=== PATIENT | female | born 1995 | race Caucasian/White ===

== ENCOUNTER → 2021-08-07 | Outpatient (CLI) | payer BC | END | disposition home or self-care (01) | LOC: LAB 17:06 → LAB SHORT 17:06 | PROVIDERS: Family Medicine | DX: Z01.419 Encounter for gynecological examination (general) (routine) without abnormal findings (principal) | CPT/HCPCS: G0123 ==

== ENCOUNTER 2023-03-06 06:06 | Emergency (ER) | payer OTHER, BC ==
[~2023-03-06] VITALS: Ht 172.7 cm; Wt 115.2 kg
[2023-03-06 06:19] VITALS: BP 136/101
[2023-03-06] MEDS ORDERED: Adipex-P37.5 M1 PO (06:30)
[2023-03-06] MEDS ORDERED: TRAZODONE HYDROCHLOR (06:31)
[2023-03-06] MEDS ORDERED: TOPI15C (06:31)
[2023-03-06] MEDS ORDERED: ESCITALOPRAM OXA5 MG (06:31)
[2023-03-07 13:09] LABS: HIV AB/P24 AG SCREEN Non Reactive (Non Reactive)
[2023-03-07 14:09] LABS: HCV ANTIBODY Non Reactive (Non Reactive)
== END 2023-03-06 07:23 | disposition home or self-care (01) ==
LOC: ER 06:06
PROVIDERS: Student in an Organized Health Care Education/Training Program
DX: Z77.21 Contact with and (suspected) exposure to potentially hazardous body fluids (principal); Z79.899 Other long term (current) drug therapy
CPT/HCPCS: 36415; 84460; 86317; 86703; 86803; 87340; 87389; 99283

== ENCOUNTER 2024-07-02 11:41 | Emergency (ER) | payer OTHER, BC ==
[~2024-07-02] VITALS: Ht 172.7 cm; Wt 111.1 kg
[~2024-07-02 11:41] MED LIST: Adipex-P37.5 M1 PO; ESCITALOPRAM OXA5 MG; TOPI15C; TRAZODONE HYDROCHLOR
[2024-07-02 12:04] VITALS: BP 152/100
[2024-07-02] MEDS ORDERED: RALT400 PO (13:16)
[2024-07-02] MEDS ORDERED: EMTRICITABINE-1 EACH PO (13:16)
[2024-07-04 14:50] LABS: HEPATITIS B SURFACE ANTIBODY 371.75 IU/L
[2024-07-04 16:03] LABS: HIV 1,2 COMBO ANTIGEN/ANTIBODY Negative (Negative)
[2024-07-07 15:08] LABS: HCV QNT BY NAAT (IU/ML) Not Detected; HCV QNT BY NAAT (LOG IU/ML) Not Detected; HCV QNT BY NAAT INTERP Not Detected (Not Detected)
== END 2024-07-02 13:21 | disposition home or self-care (01) ==
LOC: ER 11:41
PROVIDERS: Student in an Organized Health Care Education/Training Program
DX: Z77.21 Contact with and (suspected) exposure to potentially hazardous body fluids (principal); Z79.899 Other long term (current) drug therapy
CPT/HCPCS: 84460; 87389; 87522; 99283

== ENCOUNTER → 2024-08-11 | Outpatient (CLI) | payer BC ==
[~2024-08-11] MED LIST changes: +EMTRICITABINE-1 EACH PO; +RALT400 PO
[2024-08-13 11:21] LABS: HEPATITIS A ANTIBODY, IGM Negative (Negative); HEPATITIS B CORE ANTIBODY, IGM Negative (Negative); HEPATITIS B SURFACE ANTIGEN Negative (Negative); HEPATITIS C AB CIA INTERP Negative (Negative); HEPATITIS C ANTIBODY CIA INDEX 0.08 IV
[2024-08-13 15:29] LABS: HIV 1,2 COMBO ANTIGEN/ANTIBODY Negative (Negative)
== END ==
LOC: LAB 07:36 → LAB SHORT 07:36
PROVIDERS: Physician Assistant
DX: R74.8 Abnormal levels of other serum enzymes (principal); Z77.21 Contact with and (suspected) exposure to potentially hazardous body fluids
CPT/HCPCS: 80074; 82977; 87389